=== PATIENT | female | born 1955 | race Caucasian/White ===

== ENCOUNTER → 2019-08-20 11:51 | Outpatient (CLI) | payer BC, SELFPAY ==
--- NOTE | ~2019-08-20 | US_ITS ---
EXAMINATION: US thyroid DATE: 08/20/2019 12:15 INDICATION: Goiter TECHNIQUE: Multiple ultrasound images of the thyroid were obtained. COMPARISON: None. FINDINGS: The right thyroid lobe measures 4.5 x 2.0 x 1.3 cm. The left thyroid lobe measures 3.7 x 1.8 x 1.2 c m. There is heterogeneous echogenicity with coarsened echotexture and mildly increased vascular flow throughout the bilateral thyroid lobes. 4 mm wider than tall solid hypoechoic nodule with smooth mar gins and without echogenic foci in the mid right thyroid (TI-RADS 4, moderately suspicious , FNA if > =1.5 cm, annual followup is >1 cm). 3 mm hyperechoic nodule in the mid left thyroid (TI-RADS 3, mildl y suspicious , FNA if >=2.5 cm, annual followup is >1.5 cm). IMPRESSION: 1. Mildly enlarged thyroid with heterogeneous echogenicity, coarsened echotexture and mild increased vascular flow on color Doppler which can be seen with thyroiditis. 2. A couple <6 mm likely benign thyroid nodules which do not meet TI-RADS criteria for biopsy or foll ow-up. Reviewed, dictated and finalized at location A. ITECT MARINE IMPRESSION: 1. Mildly enlarged thyroid with heterogeneous echogenicity, coarsened echotextu re and mild increased vascular flow on color Doppler which can be seen with thy roiditis. 2. A couple <6 mm likely benign thyroid nodules which do not meet TI-RADS crite [place] for biopsy or follow-up.
== END ==
PROVIDERS: PCP Family Medicine; Visit Provider Internal Medicine Endocrinology, Diabetes & Metabolism
DX: E04.9 Nontoxic goiter, unspecified (principal)
CPT/HCPCS: 76536

== ENCOUNTER → 2020-02-28 12:19 | Outpatient (CLI) | payer BC, SELFPAY ==
--- NOTE | ~2020-02-28 | XR_ITS ---
EXAMINATION: XR shoulder RT min 2V DATE: 02/28/2020 12:46 INDICATION: Right shoulder pain. TECHNIQUE: 4 views of right shoulder were obtained. COMPARISON: None. FINDINGS: Bone alignment is normal. No fracture. There is mild osteoarthritis of glenohumeral joint a nd moderate osteoarthritis of acromioclavicular joint. There is calcific tendinitis of the rotator cu ff. IMPRESSION: 1. Polyarticular osteoarthritis. 2. Calcific tendinitis of the rotator cuff. Reviewed, dictated and finalized at location B.
== END ==
PROVIDERS: PCP Family Medicine; Visit Provider Physician Assistant
DX: M19.011 Primary osteoarthritis, right shoulder (principal); M75.31 Calcific tendinitis of right shoulder
CPT/HCPCS: 73030

== ENCOUNTER → 2020-06-11 17:39 | Outpatient (CLI) | payer BC, SELFPAY ==
--- NOTE | ~2020-06-11 | MM_ITS ---
EXAMINATION: MM screening binta BI w gabriel HISTORY: Screening mammogram TECHNIQUE: Craniocaudal and mediolateral oblique 3-D tomosynthesis images were obtained and synthetic 2-D images were generated. Bilateral rotated lateral cc views. ........CAD analysis was submitted an d interpreted. COMPARISON: 11/07/2017 bilateral digital screening mammogram BREAST PARENCHYMAL COMPOSITION: The breasts are heterogeneously dense, which may obscure small masses . FINDINGS: There is focal asymmetry/architectural distortion in the central left breast (craniocaudal Tomosynthesis image 41/84) diagnostic left mammogram and left breast ultrasound examination are recom mended. No suspicious mass or architectural distortion, malignant calcification, skin thickening or retractio n of the breast is evident otherwise. IMPRESSION: 1. Focal asymmetry/architectural distortion of central left breast 2. Diagnostic left mammogram and left breast ultrasound examination are recommended. BI-RADS Category 0: Incomplete: Needs additional imaging evaluation. Reviewed, dictated and finalized at location A. ECT FINANCE ANALYST IMPRESSION: 1. Focal asymmetry/architectural distortion of central left breast 2. Diagnostic left mammogram and left breast ultrasound examination are recomme nded. BI-RADS Category 0: Incomplete: Needs additional imaging evaluation.
== END ==
PROVIDERS: PCP Family Medicine; Visit Provider Family Medicine
DX: Z12.31 Encounter for screening mammogram for malignant neoplasm of breast (principal); R92.8 Other abnormal and inconclusive findings on diagnostic imaging of breast
CPT/HCPCS: 77063; 77067

== ENCOUNTER → 2020-07-15 08:58 | Outpatient (CLI) | payer BC, SELFPAY ==
--- NOTE | ~2020-07-15 | US_ITS ---
Please refer to diagnostic mammogram report dated 07/15/2020 for details. Reviewed, dictated and finalized at location A. ING SPECIALIST
--- NOTE | ~2020-07-15 | MM_ITS ---
EXAMINATION: MM diagnostic binta LT w gabriel HISTORY: Follow-up left breast asymmetry TECHNIQUE: Additional 3-D tomosynthesis images of the left breast were performed and synthetic 2-D im ages were generated. CAD analysis was submitted and interpreted. High resolution limited left breast ultrasound was performed. COMPARISON: None BREAST PARENCHYMAL COMPOSITION: FINDINGS: MAMMOGRAPHIC FINDINGS: There is architectural distortion located centrally in the left breast on CC view, not well recognize d on MLO or mediolateral views. No suspicious calcifications. ULTRASOUND: At 10-11 o'clock, 6 cm from the nipple, there is a poorly circumscribed hypoechoic mass with posterio r shadowing. No significant intraluminal vascularity. The mass is well-circumscribed for measurement, although measures approximately 8 mm. At 11:00, 10 cm from the nipple, there is a small lipoma measu ring 5 mm. At 11:00, 6 cm from the nipple there is a focal mass with posterior shadowing measuring ap proximately 2 mm with antiparallel configuration. 12:00, 8 cm from the nipple, there is an irregular shaped hypoechoic mass measuring 7 mm with posterior shadowing. No internal vascularity. At 1:00, 6 c m from the nipple there is a 5 mm complicated cyst. IMPRESSION: 1. Possible abnormal masses of the left breast including masses at 10-11:00, 6 cm from the nipple, 11 :00, 6 cm from the nipple and 12:00, 8 cm from the nipple. 2. Ultrasound-guided left breast biopsies recommended. BI-RADS category 4, suspicious findings. Reviewed, dictated and finalized at location A. FIC CONTROL FLAGGER IMPRESSION: 1. Possible abnormal masses of the left breast including masses at 10-11:00, 6 cm from the nipple, 11:00, 6 cm from the nipple and 12:00, 8 cm from the nipple . 2. Ultrasound-guided left breast biopsies recommended. BI-RADS category 4, suspicious findings.
== END ==
PROVIDERS: PCP Family Medicine; Visit Provider Family Medicine
DX: R92.8 Other abnormal and inconclusive findings on diagnostic imaging of breast (principal)
CPT/HCPCS: 76642; 77061; 77065; G0279

== ENCOUNTER → 2020-08-19 10:13 | Outpatient (CLI) | payer BC, SELFPAY ==
--- NOTE | ~2020-08-19 | DEXA_ITS ---
Bone Density Report Name: Gopi Meyer Age: 65 Sex: Female Ethnicity: White Date of : 1955 Indication: osteopenia; height loss; postmenopausal Referring Provider: David, Alisa Lyon Study: Bone densitometry was performed. Exam Date: August 19, 2020 Accession number: [id number] Bone Density: Region BMD T-score Z-score Classification AP Spine (L1-L4) 0.796 -2.3 -0.5 Osteopenia Femoral Neck (Left) 0.633 -1.9 -0.5 Osteopenia Total Hip (Left) 0.797 -1.2 0.0 Osteopenia Femoral Neck (Right) 0.619 -2.1 -0.6 Osteopenia Total Hip (Right) 0.809 -1.1 0.1 Osteopenia Total Hip Mean 0.803 -1.2 0.1 Osteopenia World Health Organization criteria for BMD impression classify patients as: Normal (T-score at or above -1.0), Osteopenia (T-score between -1.0 and -2.5), or Osteoporosis (T-score at or below -2.5). 10-year Fracture Risk(1): Major Osteoporotic Fracture 11% Hip Fracture 1.6% Reported Risk Factors: [place] (), Neck BMD=0.619, BMI=27.3 (1) FRAX(R) Version 3.08. Fracture probability calculated for an untreated patient. Fracture probability may be lower if the patient has received treatment. Previous Exams: Region Exam Age BMD T-score BMD Change BMD Change Date g/cm2 vs Baseline vs Previous AP Spine(L1-L4) 08/19/2020 65 0.796 -2.3 0.016 0.016 10/31/2017 62 0.780 -2.4 Total Hip(Left) 08/19/2020 65 0.797 -1.2 -0.001 -0.001 10/31/2017 62 0.798 -1.2 Total Hip(Right) 08/19/2020 65 0.809 -1.1 0.013 0.013 10/31/2017 62 0.795 -1.2 *Denotes significance at 95% confidence level, LSC for AP Spine = 0.022 g/cm2, LSC for Total Hip = 0.027 g/cm2 Clinical Information Provided by Patient: Has used the following medications: Vitamin D, MTV Patient maximum height was 65.0 Menopause Age: 57 No regular weight bearing exercise Drinks caffeinated beverages Onset of menses at age 11 Number of children 0 Impression: The patient has low bone mass, based on the Total Spine T-score. The patient has an estimated ten-year risk of hip fracture of 1.6% and an estimated ten-year risk of major fracture of 11%, based on the WHO FRAX algorithm. No significant bone loss was observed. Discussion: BONE DENSITY IS LOW AT ONE OR MORE SKELETAL SITES. This patient's lowest T-score is low at one or more skeletal sites. It meets the World Health Organization's (WHO) criteria for ?low bone mas
== END ==
PROVIDERS: PCP Family Medicine; Visit Provider Internal Medicine Endocrinology, Diabetes & Metabolism
DX: Z78.0 Asymptomatic menopausal state (principal); M85.89 Other specified disorders of bone density and structure, multiple sites
CPT/HCPCS: 77080

== ENCOUNTER 2022-03-26 16:52 | Outpatient (CLI) | payer MEDICARE, SELFPAY ==
--- NOTE | ~2022-03-26 | XR_ITS ---
EXAMINATION: XR knee LT 3V DATE: 03/26/2022 17:26 INDICATION: Patellar pain at the left knee TECHNIQUE: Weight bearing anteroposterior, sunrise, and flexed lateral views of the left knee were ob tained COMPARISON: None. FINDINGS: Alignment is normal. No fracture. Joint spaces are normal. No joint effusion/layering lipohemarthros is. Soft tissues are unremarkable. IMPRESSION: 1. Negative left knee radiographs. Reviewed, dictated and finalized at location A.
== END 2022-03-26 16:53 | disposition home or self-care (01) ==
PROVIDERS: PCP Family Medicine; Visit Provider Family Medicine
DX: M25.562 Pain in left knee (principal)
CPT/HCPCS: 73562

== ENCOUNTER 2022-10-06 09:00 | Outpatient (NON) | payer MEDICARE, SELFPAY | END 2022-10-06 09:01 | disposition home or self-care (01) | LOC: ANHLAB 10-07 07:54 | PROVIDERS: PCP Family Medicine; Visit Provider Internal Medicine Gastroenterology | DX: D12.4 Benign neoplasm of descending colon (principal) | CPT/HCPCS: 88305 ==

== ENCOUNTER 2022-10-06 09:58 | Day surgery (SDC) | payer MEDICARE, SELFPAY ==
[2022-06-28 08:44] VITALS: BMI 26.2
[2022-09-23 11:36] VITALS: BMI 25.7
--- NOTE | 2022-10-05 15:49 | PM.HPGS ---
History of Present Illness History of Present Illness Consent: Risks, benefits, and alternatives have been discussed and questions answered. Patient agrees to proceed with procedure. Chief complaint: Neoplasm Screening Narrative: Gopi Meyer is a 67 year old female who was referred for colon cancer screening. Her last colonoscopy which I performed little over 10 years ago was entirely normal. Review of Systems Review of Systems: All systems reviewed & are unremarkable except as noted in HPI and below PMFSH Past Medical History Medical History Anxiety Counseling on health promotion and disease prevention Emphysema lung Encounter for hepatitis C screening test for low risk patient Encounter for immunization Encounter for medication management Fatigue Willem's disease Healthy adult Left knee pain Left knee pain Medicare welcome exam Osteopenia after menopause Post herpetic neuralgia Sjogren's disease Surgical History Surgical History H/O breast biopsy History of bunionectomy Family History Family History Mother Family history of Alzheimer's disease, Onset Age: 93 Sibling Cancer of kidney Diabetes mellitus Cerebrovascular accident Other Family history of emphysema Social History Social History Smoking packs per day: 0.75 Smoking cigarettes per day: 15.0 Years smoked: 20 Smoking pack-years: 15.00 Smoking status: Never smoker Second hand tobacco smoke exposure: No Alcohol intake: never Substance use: never Substance use type: does not use Lack of Transportation: No Lack of Food: Never True Current Housing: I Have Housing Concerned About Future Housing: No Difficulty Paying Gas/Electric Bills: No Difficulty Paying for Meds: No Currently Unemployed: No Education: Associate Degree Difficulty w/ Childcare or Family Care: No Living arrangements: alone Occupation/Education: retired Gender identity (if verbalized by the patient): Female Spiritual care concerns: No Agree to blood products: Yes Meds Home Medications and Allergies Home Medications Medication Instructions Recorded Confirmed Type mv-min-vit C-ascorb 1 tablet PO DAILY 05/13/20 10/06/22 History Rp-Lkz-Fuh-herb #124 333 mg-1.7 mg chewable tablet (Airborne (ascorbate sodium)) B complex 11-folic acid 1 mg-C 100 1 tablet PO .qod 03/25/22 10/06/22 History mg-biotin 300 mcg-zinc 50 mg tablet pkzymwsw-fke-ptpp 18 mg-FA 400 1 tablet PO .qod 03/25/22 10/06/22 History mcg-calcium 500 mg-vit K 50 mcg tablet (Women's Multivitamin) vit C 250 mg-vit E 200 unit-zinc 2 cap PO DAILY 03/25/22 10/06/22 History ox 12.5 dx-rgwspo-fgnopx-zeax capsule (ICaps AREDS2) biotin 1 mg capsule 1 mg PO DAILY 04/21/22 10/06/22 History cinnamon bark 500 mg capsule 500 mg PO DAILY 04/21/22 10/06/22 History levothyroxine 50 mcg capsule 50 mcg PO DAILY 04/21/22 10/06/22 History Allergies Allergy/AdvReac Type Severity Reaction Status Date / Time No Known Allergies Allergy Verified 10/06/22 10:34 Exam Resp: Auscultation: clear to auscultation bilaterally Cardio: Rate: regular rate Rhythm: regular rhythm GI: GI Palp: Yes Soft to palpation and No Tenderness to palpation present (GI) Assessment and Plan Assessment and plan (1) Colon cancer screening: Code(s): Z12.11 - Encounter for screening for malignant neoplasm of colon Status: Acute Assessment and Plan: Colonoscopy with possible biopsy or polypectomy or cautery or injection of substances.
--- NOTE | 2022-10-06 07:13 | WPDANESEPPF ---
Anes - Initial Pre Proc Eval Procedure: Operation Date: 10/06/22 12:00 Proposed Procedures p Screening Colonoscopy - Reynaldo Patel MD Date/Time: 10/06/22 07:13 Surgeon: Reynaldo Patel MD Pre Op Diagnosis: Neoplasm Screening Patient Data Age: 67 Gender: F Height: 1.63 m Weight: 68 kg Allergies Allergy/AdvReac Type Severity Reaction Status Date / Time No Known Allergies Allergy Verified 10/06/22 10:34 Home Medications Medication Instructions Recorded Confirmed Type mv-min-vit C-ascorb 1 tablet PO DAILY 05/13/20 10/06/22 History We-Ybi-Ijx-herb #124 333 mg-1.7 mg chewable tablet (Airborne (ascorbate sodium)) B complex 11-folic acid 1 mg-C 100 1 tablet PO .qod 03/25/22 10/06/22 History mg-biotin 300 mcg-zinc 50 mg tablet ajhujgmm-svo-tefb 18 mg-FA 400 1 tablet PO .qod 03/25/22 10/06/22 History mcg-calcium 500 mg-vit K 50 mcg tablet (Women's Multivitamin) vit C 250 mg-vit E 200 unit-zinc 2 cap PO DAILY 03/25/22 10/06/22 History ox 12.5 qf-fcrnzk-xptwxt-zeax capsule (ICaps AREDS2) biotin 1 mg capsule 1 mg PO DAILY 04/21/22 10/06/22 History cinnamon bark 500 mg capsule 500 mg PO DAILY 04/21/22 10/06/22 History levothyroxine 50 mcg capsule 50 mcg PO DAILY 04/21/22 10/06/22 History Patient hx anesthesia problems: none Family hx anesthesia problems: none Results Review: All pre-operative results and documents have been reviewed as part of the pre-operative evaluation. [facility] Past Medical History Medical History (Updated 10/06/22 @ 07:14 by Kemar Maki DO) Anxiety Counseling on health promotion and disease prevention Emphysema lung Encounter for hepatitis C screening test for low risk patient Encounter for immunization Encounter for medication management Fatigue Willem's disease Healthy adult Left knee pain Left knee pain Medicare welcome exam Osteopenia after menopause Post herpetic neuralgia Sjogren's disease Surgical History Surgical History H/O breast biopsy History of bunionectomy Family History Family History Mother Family history of Alzheimer's disease, Onset Age: 93 Sibling Cancer of kidney Diabetes mellitus Cerebrovascular accident Other Family history of emphysema Social History Social History Smoking packs per day: 0.75 Smoking cigarettes per day: 15.0 Years smoked: 20 Smoking pack-years: 15.00 Smoking status: Never smoker Second hand tobacco smoke exposure: No Alcohol intake: never Substance use: never Substance use type: does not use Lack of Transportation: No Lack of Food: Never True Current Housing: I Have Housing Concerned About Future Housing: No Difficulty Paying Gas/Electric Bills: No Difficulty Paying for Meds: No Currently Unemployed: No Education: Associate Degree Difficulty w/ Childcare or Family Care: No Living arrangements: alone Occupation/Education: retired Gender identity (if verbalized by the patient): Female Spiritual care concerns: No Agree to blood products: Yes Anes - Eval Final PreProcedure Day of Procedure 10/06/22 07:13 Patient weight: overweight Heart: regular rate and rhythm Lungs: clear to auscultation Airway: Mallampati scale class II Neurological: alert and oriented Last oral intake: >/= 8 hours ASA classification: III Emergent: no Anesthetic plan: proceed Anesthesia type and monitoring: general GIVS and standard monitoring Results Review: All pre-operative results and documents have been reviewed as part of the pre-operative evaluation. Informed Consent: The patient's anesthetic plan and its attendant risks and benefits were discussed with the patient/family/POA. Questions were solicited and answers provided to the satisfaction of the patient/family/POA.
[2022-10-06 10:45] VITALS: BP 133/79; PULSE 82; RESP 18; TEMP 37.1; O2SAT 99
[2022-10-06] MEDS: LACTATED RINGERS 1,000 ML 150 ML IV CONT (10:47)
[2022-10-06 12:25] VITALS: BP 106/55; PULSE 80; RESP 16; O2SAT 98
[2022-10-06 12:35] VITALS: BP 106/66; PULSE 79; RESP 16; O2SAT 100
--- NOTE | 2022-10-06 12:41 | SUR.PHASEII ---
PT AWAKE AND ALERT. WATCHING TELEVISION. PT REFUSING SOMETHING TO DRINK AT THIS TIME.
[2022-10-06 12:45] VITALS: BP 109/69; PULSE 75; RESP 16; O2SAT 100
--- NOTE | 2022-10-06 12:59 | SUR.PHASEII ---
PT AWAKE AND ALERT. DENIES PAIN OR NAUSEA. REFUSES DRINK OR FOOD.
--- NOTE | 2022-10-06 15:00 | WPDANESPN ---
Anes - Prog Note Post-Op Date/Time: 10/06/22 15:00 Cardiovascular status: normal Respiratory status: normal Airway patency: baseline Mental status: baseline Post-Op hydration status: normal Vital Signs: Last Vital Signs Temp 37.1 C 10/06/22 10:45 Pulse 75 10/06/22 12:45 Resp 16 10/06/22 12:45 BP 109/69 10/06/22 12:45 Pulse Ox 100 10/06/22 12:45 O2 Del Method Room Air 10/06/22 12:45 Pain Score (VAS): 0 I/O: Intake & Output 10/05/22 10/06/22 10/06/22 23:59 07:59 15:59 Intake Total 700 Balance 700 Post-procedural complaints: none Patient Feedback: Patient satisfied with anesthetic care. Other Findings: Patient vital signs back to baseline. Patient denies nausea and vomiting. Patient's pain under control. Patient OK for discharge.
== END 2022-10-06 13:02 | disposition home or self-care (01) ==
PROVIDERS: PCP Family Medicine; Visit Provider Internal Medicine Gastroenterology
PROC: 0DJD8ZZ Inspection of Lower Intestinal Tract, Via Natural or Artificial Opening Endoscopic (ICD-10-PCS; CPT 45378; principal; 2022-10-06 12:00)
DX: Z12.11 Encounter for screening for malignant neoplasm of colon (principal)
CPT/HCPCS: 45385

== ENCOUNTER 2024-01-18 12:58 | Outpatient (CLI) | payer MEDICARE, SELFPAY ==
--- NOTE | ~2024-01-18 | XR_ITS ---
XR hip RT 2V w AP pelvis Ordering provider: Cari Jaramillo PA-C History: . M25.551 - Pain in right hip . Comparison: April 01, 2017 FINDINGS: BONES: No acute fracture or dislocation. HIP JOINT SPACES: Mild osteoarthritic changes bilaterally. SACROILIAC JOINT SPACES/LUMBAR SPINE: The sacroiliac joint spaces are normal. Mild degenerative escalera es of the visualized lower lumbar spine. PUBIC SYMPHYSIS: Pubic symphysitis. SOFT TISSUES: Normal. IMPRESSION: No acute osseous abnormality pelvis and right hip. Reviewed, dictated and finalized at location A.
== END 2024-01-18 12:59 ==
PROVIDERS: PCP Family Medicine; Visit Provider Student in an Organized Health Care Education/Training Program
DX: M25.551 Pain in right hip (principal)
CPT/HCPCS: 73502

== ENCOUNTER 2024-05-07 10:29 | Outpatient (CLI) | payer MEDICARE, SELFPAY ==
--- NOTE | ~2024-05-07 | US_ITS ---
EXAMINATION: US soft tissue head and neck DATE: 05/07/2024 10:51 INDICATION: Chronic enlarging localized swelling, mass or lump at the left base of the neck TECHNIQUE: Multiple grayscale and Doppler ultrasound images of the region of concern at the left base of the neck were obtained. COMPARISON: None FINDINGS: 6 x 4 x 6 mm hypoechoic lymph node with central fatty hilum in the subcutaneous tissues 6 mm deep to the skin surface at the region of concern. A small vessel passes near the lymph node. On the in trans verse cine images there is suggestion of a 1.8 x 0.7 cm ovoid region which is isoechoic and with norma lar echotexture to the surrounding subcutaneous fat suggesting a small lipoma. No other abnormal mass es or fluid collections identified. IMPRESSION: 1. 1.8 x 0.7 cm ovoid subjacent mass in the region of concern, difficult to distinguish from the surr ounding subcutaneous fat which would be most consistent with and statistically most likely to represe nt a lipoma. 2. Normal 6 x 4 x 6 mm relatively superficial subcutaneous lymph node at the region of concern. Reviewed, dictated and finalized at location A. IMPRESSION: 1. 1.8 x 0.7 cm ovoid subjacent mass in the region of concern, difficult to dis tinguish from the surrounding subcutaneous fat which would be most consistent w ith and statistically most likely to represent a lipoma. 2. Normal 6 x 4 x 6 mm relatively superficial subcutaneous lymph node at the re gion of concern.
== END 2024-05-07 10:30 | disposition home or self-care (01) ==
PROVIDERS: PCP Family Medicine; Visit Provider Family Medicine
DX: R22.1 Localized swelling, mass and lump, neck (principal)
CPT/HCPCS: 76536

== ENCOUNTER 2024-10-01 13:09 | Outpatient (CLI) | payer MEDICARE, SELFPAY ==
--- NOTE | ~2024-10-01 | US_ITS ---
EXAMINATION: US thyroid DATE: 10/01/2024 13:32 INDICATION: Goiter. Willem's thyroiditis. TECHNIQUE: Multiple ultrasound images of the thyroid were obtained. COMPARISON: 08/20/2019 FINDINGS: The right thyroid lobe measures 4.3 x 1.3 x 1.5 cm. The left thyroid lobe measures 4.0 x 1.6 x 1.4 c m. There is heterogeneous decreased echogenicity and coarsened echotexture and mild increased vascul ar flow on color Doppler throughout both lobes of the thyroid likely related to reported history of t hyroiditis. 1.3 cm wider than tall, solid very hypoechoic nodule with irregular margins in the left t hyroid lobe (TI-RADS 5, highly suspicious , FNA if >=1.0 cm, annual followup is >0.5 cm). IMPRESSION: 1. 1.3 cm TI RADS 5 left thyroid nodule for which ultrasound-guided fine-needle aspiration would be r ecommended. 2. Echogenic thyroid with coarsened echotexture and increased flow consistent with provided history o f thyroiditis. Reviewed, dictated and finalized at location A. IMPRESSION: 1. 1.3 cm TI RADS 5 left thyroid nodule for which ultrasound-guided fine-needle aspiration would be recommended. 2. Echogenic thyroid with coarsened echotexture and increased flow consistent w ith provided history of thyroiditis.
== END 2024-10-01 13:10 | disposition home or self-care (01) ==
PROVIDERS: PCP Family Medicine; Visit Provider Internal Medicine
DX: R93.89 Abnormal findings on diagnostic imaging of other specified body structures (principal); E04.1 Nontoxic single thyroid nodule; M85.80 Other specified disorders of bone density and structure, unspecified site; E06.3 Autoimmune thyroiditis
CPT/HCPCS: 76536